=== PATIENT | male | born 1940 | race Caucasian/White ===

== ENCOUNTER 2017-10-03 16:32 | Emergency (ER) | payer MEDICARE ==
[~2017-10-03] VITALS: Ht 175.3 cm; Wt 55.0 kg
[~2017-10-03 16:32] MED LIST: ACID1GRA3 PO; ASPI-515 PO; ATOR40TA PO; CIPR500T3 PO; CYAN10005 PO; DOCU-131 PO; ENOX40SY4 SQ; FAMO20TA7 PO; FOLI-17 PO; IPRA3AMP INH; LEVO500T47 PO; LEVO750T26 PO; LEVO750T6 PO; LORA-446 PO; METO25TA35 PO; METO50TA82 PO; MULT-26 PO; MULT-750 PO; NICO-487 TD; OXYC5TAB3 PO; POLY17PO5 PO; PRED5TAB PO; TEMA15CA PO; THIA100T10 PO; THIA100T6 PO; TRAM50TA2 PO; VANC1VIA3 PO; beer PO
[2017-10-03] MEDS ORDERED: methylPREDNISolone SOD SUCC 125 MG/2 ML ONE (17:29)
[2017-10-03] MEDS ORDERED: ALBUTEROL SULFATE 2.5 MG/3 ML NPPB ONE (17:30)
[2017-10-03] MEDS ORDERED: SODIUM CHLORIDE FLUSH 10ML SYR IVF ONE (17:30)
[2017-10-03] MEDS ORDERED: methylPREDNISolone SOD SUCC 125 MG/2 ML IVP ONE (17:30)
[2017-10-03 17:38] LABS: ALBUMIN 3.9 g/dL (3.4-5.0); ANION GAP 18 mmol/L (5-15); CALCIUM 8.8 mg/dL (8.5-10.1); CHLORIDE 98 mmol/L (98-107); CREATININE 1.16 mg/dL (0.7-1.3)
[2017-10-03 18:15] LABS: BASOPHILS # (AUTO) 0.03 x10^3/uL (0-0.1); BASOPHILS % (AUTO) 1 % (0-1); EOSINOPHILS # (AUTO) 0.11 x10^3/uL (0-0.4); EOSINOPHILS % (AUTO) 2 % (1-7); LYMPHOCYTES # (AUTO) 1.57 x10^3/uL (1-3.4); LYMPHOCYTES % (AUTO) 33 % (22-44); MD NO; MEAN CORPUSCULAR HEMOGLOBIN 34.3 pg (27.5-34.5); MEAN CORPUSCULAR HGB CONC 33.8 g/dL (33.2-36.2); MEAN CORPUSCULAR VOLUME 101.5 fL (81-97); MEAN PLATELET VOLUME 7.2 fL (7.4-10.4); MONOCYTES % (AUTO) 13 % (2-9); NEUTROPHILS # (AUTO) 2.49 x10^3/uL (1.8-6.8); NEUTROPHILS % (AUTO) 52 % (42-75); PLATELET COUNT 109 x10^3/uL (130-400); RED BLOOD COUNT 3.51 x10^6/uL (4.38-5.82); RED CELL DISTRIBUTION WIDTH 14.7 % (9.4-14.8)
[2017-10-03] MEDS ORDERED: SODIUM CHLORIDE 0.9% 1,000ML IVBOLUS ONE (18:30)
[2017-10-03 18:49] LABS: ALBUMIN 3.9 g/dL (3.4-5.0); BILIRUBIN, DIRECT 0.2 mg/dL (0.1-0.2)
[2017-10-03 18:54] LABS: ALANINE AMINOTRANSFERASE 20 U/L (12-78); ALKALINE PHOSPHATASE 90 U/L (45-117); BILIRUBIN,INDIRECT 0.6 mg/dL (0.0-2.0); BILIRUBIN,TOTAL 0.8 mg/dL (0.2-1.0); CREATINE KINASE, TOTAL 67 U/L (39-308); TOTAL PROTEIN 8.1 g/dL (6.4-8.2); TROPONIN I < 0.015 ng/mL (0.000-0.045)
[2017-10-03] MEDS ORDERED: D5%-0.45% NACL 1,000 ML IV SCH (19:30)
[2017-10-03 21:54] VITALS: BP 122/66
== END 2017-10-03 22:33 | disposition home or self-care (01) ==
LOC: ED 18:46
DX: R53.81 Other malaise (principal); F10.20 Alcohol dependence, uncomplicated
CPT/HCPCS: 36415; 70450; 71010; 80048; 80076; 82040; 82550; 83735; 84484; 85025; 93005; 99285

== ENCOUNTER 2020-01-29 02:28 | Inpatient (IN) | payer MEDICARE, MEDICAID ==
[~2020-01-29] VITALS: Ht 175.3 cm; Wt 47.3 kg
[~2020-01-29 02:28] MED LIST changes: +CYAN-27 PO; -CYAN10005 PO; -IPRA3AMP INH; +IPRA3AMP30 INH; -THIA100T6 PO; +THIA100T67 PO
--- NOTE | 2020-01-29 02:34 | NUR ---
Patient BIB [facility] c/o bilat leg weakness and productive cough x1 month. Patient is coughing up white phlegm. Respirations even and unlabored. Patient is in NAD.
[2020-01-29 03:25] LABS: BASOPHILS # (AUTO) 0.05 x10^3/uL (0-0.1); BASOPHILS % (AUTO) 1 % (0-1); EOSINOPHILS # (AUTO) 0.02 x10^3/uL (0-0.4); EOSINOPHILS % (AUTO) 0 % (1-7); LYMPHOCYTES # (AUTO) 0.69 x10^3/uL (1-3.4); LYMPHOCYTES % (AUTO) 7 % (22-44); MD NO; MEAN CORPUSCULAR HEMOGLOBIN 32.5 pg (27.5-34.5); MEAN CORPUSCULAR HGB CONC 32.9 g/dL (33.2-36.2); MEAN CORPUSCULAR VOLUME 98.6 fL (81-97); MEAN PLATELET VOLUME 6.9 fL (7.4-10.4); MONOCYTES # (AUTO) 0.79 x10^3/uL (0.2-0.8); MONOCYTES % (AUTO) 8 % (2-9); NEUTROPHILS # (AUTO) 7.93 x10^3/uL (1.8-6.8); NEUTROPHILS % (AUTO) 84 % (42-75); PLATELET COUNT 200 x10^3/uL (130-400); RED BLOOD COUNT 2.85 x10^6/uL (4.38-5.82); RED CELL DISTRIBUTION WIDTH 15.6 % (9.4-14.8)
[2020-01-29 03:31] LABS: ALANINE AMINOTRANSFERASE 18 U/L (12-78); ALBUMIN 3.1 g/dL (3.4-5.0); ANION GAP 15 mmol/L (5-15); CALCIUM 9.1 mg/dL (8.5-10.1); CHLORIDE 99 mmol/L (98-107); CREATININE 1.66 mg/dL (0.7-1.3)
[2020-01-29 03:36] LABS: ALKALINE PHOSPHATASE 75 U/L (45-117); BILIRUBIN,TOTAL 0.4 mg/dL (0.2-1.0); TOTAL PROTEIN 7.6 g/dL (6.4-8.2); TROPONIN I < 0.015 ng/mL (0.000-0.045)
[2020-01-29] MEDS ORDERED: SODIUM CHLORIDE 0.9% 1,000 ML IV ONE (03:53)
[2020-01-29] MEDS ORDERED: CEFTRIAXONE PMX 1GM/50ML 50 ML IVPB ONE (04:00)
[2020-01-29] MEDS ORDERED: AZITHROMYCIN 500 MG in SODIUM CHLORIDE 0.9% 250 ML IVPB ONE (04:00)
[2020-01-29] MEDS ORDERED: SODIUM CHLORIDE FLUSH 10ML SYR IVF ONE (04:00)
[2020-01-29] MEDS ORDERED: CEFTRIAXONE PMX 1GM/50ML 50 ML ONE (04:02)
--- NOTE | 2020-01-29 04:43 | NUR ---
Liu in room.
--- NOTE | 2020-01-29 05:26 | NUR ---
Report given to BOB Terry. Patient to be transferred to room 377.
[2020-01-29 05:40] VITALS: BP 122/70
[2020-01-29] MEDS ORDERED: ONDANSETRON 2MG/ML, 2ML IVPush PRN (06:00)
[2020-01-29] MEDS ORDERED: hydrALAzine 20 MG/ML, 1ML IVPush PRN (06:00)
[2020-01-29] MEDS ORDERED: ACETAMINOPHEN 325 MG TABLET PO PRN (06:00)
[2020-01-29] MEDS: AZITHROMYCIN 500 MG in SODIUM CHLORIDE 0.9% 250 ML IV SCH (06:00)
[2020-01-29] MEDS: methylPREDNISolone SOD SUCC 40 MG/ML IVPush SCH ×4 (06:00→23:42)
[2020-01-29] MEDS ORDERED: LORazepam 2 MG/ML, 1ML IVPush PRN (06:00)
[2020-01-29] MEDS ORDERED: morphine SULFATE 10 MG/ML, 1ML IVPush PRN (06:00)
[2020-01-29] MEDS ORDERED: CEFTRIAXONE PMX 1GM/50ML 50 ML IV SCH (06:00)
[2020-01-29] MEDS: HEPARIN 5,000 UNITS/ML, 1ML SQ SCH ×3 (06:27→22:09)
[2020-01-29] MEDS ORDERED: PHARMACY MAY ADJ FOR RENAL FX MC PRN (06:30)
[2020-01-29] MEDS ORDERED: PIPERACILLIN/TAZO/PMX 2.25GM 50 ML IV SCH (06:30)
[2020-01-29 07:27] LABS: TROPONIN I < 0.015 ng/mL (0.000-0.045)
[2020-01-29 07:29] LABS: INTERNATIONAL NORMALIZED RATIO 0.94 (0.93-1.1)
[2020-01-29 08:00] VITALS: BP 128/71
[2020-01-29] MEDS: POTASSIUM CHLORIDE 20 MEQ, MAGNESIUM SULFATE 2 GM, THIAMINE 200 MG, MVI ADULT 10 ML, FO... IV SCH ×2 (10:24→20:00)
[2020-01-29 12:39] LABS: TROPONIN I < 0.015 ng/mL (0.000-0.045)
--- NOTE | 2020-01-29 12:59 | NUR ---
REC RETURN TO HOME Addendum: 01/29/20 at [address] Amended: Links added.
[2020-01-29 15:30] VITALS: BP 119/64
[2020-01-29 19:39] VITALS: BP 123/68
[2020-01-29] MEDS: PIPERACILLIN/TAZO/PMX 2.25GM 50 ML IV SCH (22:08)
[2020-01-29 23:00] LABS: AMPHETAMINE SCREEN, URINE Negative (Negative); BARBITURATE SCREEN, URINE Negative (Negative); BENZODIAZEPINE SCREEN, URINE Negative (Negative); CANNABINOID SCREEN, URINE Negative (Negative); COCAINE SCREEN, URINE Negative (Negative); METHADONE SCREEN, URINE Negative (Negative); OPIATE SCREEN, URINE Negative (Negative)
[2020-01-30 00:03] VITALS: BP 116/53
[2020-01-30 02:47] LABS: OCCULT BLOOD POSITIVE (NEGATIVE)
[2020-01-30] MEDS: AZITHROMYCIN 500 MG in SODIUM CHLORIDE 0.9% 250 ML IV SCH (05:42)
[2020-01-30 05:55] LABS: MEAN CORPUSCULAR HEMOGLOBIN 32.2 pg (27.5-34.5); MEAN CORPUSCULAR HGB CONC 32.4 g/dL (33.2-36.2); MEAN CORPUSCULAR VOLUME 99.4 fL (81-97); MEAN PLATELET VOLUME 7.4 fL (7.4-10.4); PLATELET COUNT 155 x10^3/uL (130-400); RED BLOOD COUNT 2.28 x10^6/uL (4.38-5.82); RED CELL DISTRIBUTION WIDTH 15.4 % (9.4-14.8)
[2020-01-30 05:59] LABS: CHLORIDE 101 mmol/L (98-107)
[2020-01-30] MEDS: methylPREDNISolone SOD SUCC 40 MG/ML IVPush SCH ×2 (06:01→21:22)
[2020-01-30] MEDS: HEPARIN 5,000 UNITS/ML, 1ML SQ SCH (06:01)
[2020-01-30 06:08] LABS: ANION GAP 10 mmol/L (5-15); CALCIUM 8.5 mg/dL (8.5-10.1); CHOL/HDL RATIO 1.4; CHOLESTEROL, TOTAL 116 mg/dL (140-239); CREATININE 1.46 mg/dL (0.7-1.3); HDL CHOL % 70 % (26-37); HDL CHOLESTEROL (DIRECT) 81 mg/dL (40-60); LDL CHOLESTEROL,CALCULATED 24 mg/dL (54-169); LDL/HDL RATIO 0.3 (0.5-3.0); TRIGLYCERIDES 55 mg/dL (50-200); VLDL CHOLESTEROL 11 mg/dL (0-25)
[2020-01-30 06:22] LABS: MD SCAN
[2020-01-30 06:23] LABS: BASOPHILS % (AUTO) 0 % (0-1); EOSINOPHILS % (AUTO) 0 % (1-7); LYMPHOCYTES # (AUTO) 0.28 x10^3/uL (1-3.4); LYMPHOCYTES % (AUTO) 3 % (22-44); MONOCYTES # (AUTO) 0.31 x10^3/uL (0.2-0.8); MONOCYTES % (AUTO) 3 % (2-9); NEUTROPHILS # (AUTO) 9.08 x10^3/uL (1.8-6.8); NEUTROPHILS % (AUTO) 94 % (42-75)
[2020-01-30 06:39] VITALS: BP 101/64
[2020-01-30] MEDS: PIPERACILLIN/TAZO/PMX 2.25GM 50 ML IV SCH ×3 (07:30→23:29)
[2020-01-30] MEDS: PANTOPRAZOLE 40MG TABLET PO SCH ×2 (09:00→21:22)
[2020-01-30] MEDS: NEUTRA PHOS K 250 MG TABLET PO SCH ×3 (09:00→21:22)
[2020-01-30 12:37] VITALS: BP 107/58
[2020-01-30 21:30] VITALS: BP 119/55
[2020-01-31 01:00] VITALS: BP 115/67
[2020-01-31] MEDS: AZITHROMYCIN 500 MG in SODIUM CHLORIDE 0.9% 250 ML IV SCH (05:36)
[2020-01-31 06:16] LABS: BASOPHILS # (AUTO) 0.01 x10^3/uL (0-0.1); BASOPHILS % (AUTO) 0 % (0-1); EOSINOPHILS % (AUTO) 0 % (1-7); LYMPHOCYTES % (AUTO) 3 % (22-44); MD NO; MEAN CORPUSCULAR HEMOGLOBIN 32.9 pg (27.5-34.5); MEAN CORPUSCULAR HGB CONC 32.9 g/dL (33.2-36.2); MEAN CORPUSCULAR VOLUME 99.9 fL (81-97); MEAN PLATELET VOLUME 7.9 fL (7.4-10.4); MONOCYTES % (AUTO) 3 % (2-9); NEUTROPHILS # (AUTO) 11.74 x10^3/uL (1.8-6.8); NEUTROPHILS % (AUTO) 94 % (42-75); PLATELET COUNT 154 x10^3/uL (130-400); RED BLOOD COUNT 2.34 x10^6/uL (4.38-5.82); RED CELL DISTRIBUTION WIDTH 15.5 % (9.4-14.8)
[2020-01-31 06:20] LABS: ANION GAP 8 mmol/L (5-15); CALCIUM 8.8 mg/dL (8.5-10.1); CHLORIDE 103 mmol/L (98-107)
[2020-01-31 06:26] LABS: % IRON SATURATION 17 % (20-55); CREATININE 1.31 mg/dL (0.7-1.3); IRON LEVEL 47 mcg/dL (65-175); TOTAL IRON BINDING CAPACITY 282 mcg/dL (250-450)
[2020-01-31] MEDS: PIPERACILLIN/TAZO/PMX 2.25GM 50 ML IV SCH ×2 (07:15→15:57)
[2020-01-31 07:30] VITALS: BP 110/60
[2020-01-31] MEDS: NEUTRA PHOS K 250 MG TABLET PO SCH ×3 (08:20→22:05)
[2020-01-31] MEDS: PANTOPRAZOLE 40MG TABLET PO SCH ×2 (08:20→22:05)
[2020-01-31] MEDS: methylPREDNISolone SOD SUCC 40 MG/ML IVPush SCH ×2 (08:21→22:05)
[2020-01-31 11:40] VITALS: BP 125/65
[2020-01-31 15:03] VITALS: BP 106/64
[2020-01-31 19:45] VITALS: BP 133/71
[2020-02-01] VITALS (9 sets, daily range): BP systolic 114–126; BP diastolic 65–73
[2020-02-01] MEDS: PIPERACILLIN/TAZO/PMX 2.25GM 50 ML IV SCH ×3 (01:08→16:55)
[2020-02-01 06:05] LABS: MEAN CORPUSCULAR HEMOGLOBIN 33.1 pg (27.5-34.5); MEAN CORPUSCULAR VOLUME 100.4 fL (81-97); MEAN PLATELET VOLUME 7.8 fL (7.4-10.4); PLATELET COUNT 144 x10^3/uL (130-400); RED CELL DISTRIBUTION WIDTH 15.6 % (9.4-14.8)
[2020-02-01 06:10] LABS: CHLORIDE 110 mmol/L (98-107)
[2020-02-01 06:15] LABS: ANION GAP 9 mmol/L (5-15); CALCIUM 8.4 mg/dL (8.5-10.1); CREATININE 1.42 mg/dL (0.7-1.3)
[2020-02-01 06:25] LABS: BASOPHILS # (AUTO) 0.01 x10^3/uL (0-0.1); BASOPHILS % (AUTO) 0 % (0-1); EOSINOPHILS % (AUTO) 0 % (1-7); LYMPHOCYTES # (AUTO) 0.38 x10^3/uL (1-3.4); LYMPHOCYTES % (AUTO) 5 % (22-44); MD SCAN; MONOCYTES # (AUTO) 0.22 x10^3/uL (0.2-0.8); MONOCYTES % (AUTO) 3 % (2-9); NEUTROPHILS # (AUTO) 7.03 x10^3/uL (1.8-6.8); NEUTROPHILS % (AUTO) 92 % (42-75)
[2020-02-01] MEDS ORDERED: ACETAMINOPHEN 325 MG TABLET PO ONE (07:00)
[2020-02-01] MEDS ORDERED: DIPHENHYDRAMINE 25 MG CAPSULE PO ONE (07:00)
[2020-02-01] MEDS: methylPREDNISolone SOD SUCC 40 MG/ML IVPush SCH (08:50)
[2020-02-01] MEDS: NEUTRA PHOS K 250 MG TABLET PO SCH ×3 (08:50→20:04)
[2020-02-01] MEDS: PANTOPRAZOLE 40MG TABLET PO SCH ×2 (08:51→20:04)
[2020-02-02 00:36] VITALS: BP 128/88
[2020-02-02] MEDS: PIPERACILLIN/TAZO/PMX 2.25GM 50 ML IV SCH ×4 (00:58→21:23)
[2020-02-02 07:44] LABS: MEAN CORPUSCULAR HEMOGLOBIN 32.5 pg (27.5-34.5); MEAN CORPUSCULAR HGB CONC 32.6 g/dL (33.2-36.2); MEAN CORPUSCULAR VOLUME 99.4 fL (81-97); MEAN PLATELET VOLUME 7.7 fL (7.4-10.4); PLATELET COUNT 136 x10^3/uL (130-400); RED BLOOD COUNT 2.66 x10^6/uL (4.38-5.82); RED CELL DISTRIBUTION WIDTH 15.6 % (9.4-14.8)
[2020-02-02 07:47] VITALS: BP 122/71
[2020-02-02 07:54] LABS: ALANINE AMINOTRANSFERASE 15 U/L (12-78); ALBUMIN 2.3 g/dL (3.4-5.0); ANION GAP 8 mmol/L (5-15); CALCIUM 7.9 mg/dL (8.5-10.1); CHLORIDE 103 mmol/L (98-107); CREATININE 1.31 mg/dL (0.7-1.3)
[2020-02-02 07:56] LABS: ALKALINE PHOSPHATASE 44 U/L (45-117); BILIRUBIN,TOTAL 0.6 mg/dL (0.2-1.0); TOTAL PROTEIN 5.4 g/dL (6.4-8.2)
[2020-02-02 07:57] LABS: BASOPHILS # (AUTO) 0.11 x10^3/uL (0-0.1); BASOPHILS % (AUTO) 1 % (0-1); EOSINOPHILS % (AUTO) 0 % (1-7); LYMPHOCYTES # (AUTO) 0.63 x10^3/uL (1-3.4); LYMPHOCYTES % (AUTO) 7 % (22-44); MD SCAN; MONOCYTES % (AUTO) 8 % (2-9); NEUTROPHILS # (AUTO) 7.82 x10^3/uL (1.8-6.8); NEUTROPHILS % (AUTO) 85 % (42-75)
[2020-02-02] MEDS: NEUTRA PHOS K 250 MG TABLET PO SCH ×3 (08:46→21:23)
[2020-02-02] MEDS: PANTOPRAZOLE 40MG TABLET PO SCH ×2 (08:46→21:23)
[2020-02-02 14:44] VITALS: BP 122/71
[2020-02-02 21:17] VITALS: BP 129/76
[2020-02-03] MEDS ORDERED: MELATONIN 5 MG TABLET PO PRN (00:30)
[2020-02-03 01:25] VITALS: BP 127/75
[2020-02-03] MEDS: PIPERACILLIN/TAZO/PMX 2.25GM 50 ML IV SCH (03:22)
[2020-02-03 04:55] LABS: BASOPHILS % (AUTO) 0 % (0-1); EOSINOPHILS # (AUTO) 0.04 x10^3/uL (0-0.4); EOSINOPHILS % (AUTO) 0 % (1-7); LYMPHOCYTES # (AUTO) 0.35 x10^3/uL (1-3.4); LYMPHOCYTES % (AUTO) 4 % (22-44); MD NO; MEAN CORPUSCULAR HEMOGLOBIN 33.1 pg (27.5-34.5); MEAN CORPUSCULAR HGB CONC 33.1 g/dL (33.2-36.2); MEAN CORPUSCULAR VOLUME 99.8 fL (81-97); MEAN PLATELET VOLUME 8.5 fL (7.4-10.4); MONOCYTES # (AUTO) 0.53 x10^3/uL (0.2-0.8); MONOCYTES % (AUTO) 6 % (2-9); NEUTROPHILS # (AUTO) 7.62 x10^3/uL (1.8-6.8); NEUTROPHILS % (AUTO) 89 % (42-75); PLATELET COUNT 133 x10^3/uL (130-400); RED BLOOD COUNT 2.69 x10^6/uL (4.38-5.82); RED CELL DISTRIBUTION WIDTH 15.3 % (9.4-14.8)
[2020-02-03 05:04] LABS: ALBUMIN 2.2 g/dL (3.4-5.0); ANION GAP 5 mmol/L (5-15); CALCIUM 7.9 mg/dL (8.5-10.1); CHLORIDE 105 mmol/L (98-107)
[2020-02-03 05:07] LABS: ALANINE AMINOTRANSFERASE 15 U/L (12-78); ALKALINE PHOSPHATASE 39 U/L (45-117); BILIRUBIN,TOTAL 0.3 mg/dL (0.2-1.0); CREATININE 1.22 mg/dL (0.7-1.3); TOTAL PROTEIN 5.3 g/dL (6.4-8.2)
[2020-02-03] MEDS ORDERED: SODIUM PHOSPHATE 10 MMOL in SODIUM CHLORIDE 0.9% 500 ML IV ONE (07:00)
[2020-02-03 08:50] VITALS: BP 113/65
[2020-02-03] MEDS: NEUTRA PHOS K 250 MG TABLET PO SCH (08:53)
[2020-02-03] MEDS: PANTOPRAZOLE 40MG TABLET PO SCH (08:54)
[2020-02-03] MEDS ORDERED: FOLIC ACID 1 MG TABLET PO SCH (09:00)
[2020-02-03] MEDS ORDERED: MULTIVITS,STRESS FORMULA 1 TABLET PO SCH (09:00)
[2020-02-03] MEDS ORDERED: NYSTATIN OINT 15GM TP SCH (10:00)
[2020-02-03] MEDS ORDERED: PANT40TA5 PO (11:14)
[2020-02-03] MEDS ORDERED: NYST15OI TP (11:14)
[2020-02-03] MEDS ORDERED: PRED20TA PO (11:14)
[2020-02-03 14:26] VITALS: BP 126/73
== END 2020-02-03 15:39 | DRG 177 ==
LOC: ED 02:38 → EDIP 04:01 → 3N 05:34 → 4NE 13:52 → 4NW 01-30 16:00 → 3N 01-31 10:55
PROVIDERS: ADMIT Family Medicine; ATTEND Internal Medicine
PROC: 30233N1 Transfusion of Nonautologous Red Blood Cells into Peripheral Vein, Percutaneous Approach (ICD-10-PCS; principal; 2020-02-01)
DX: J15.6 Pneumonia due to other Gram-negative bacteria (principal); E43 Unspecified severe protein-calorie malnutrition; N17.0 Acute kidney failure with tubular necrosis; J44.0 Chronic obstructive pulmonary disease with (acute) lower respiratory infection; K92.2 Gastrointestinal hemorrhage, unspecified; Z68.1 Body mass index [BMI] 19.9 or less, adult; J98.11 Atelectasis; F10.288 Alcohol dependence with other alcohol-induced disorder; J44.1 Chronic obstructive pulmonary disease with (acute) exacerbation; R73.9 Hyperglycemia, unspecified; Z20.828 Contact with and (suspected) exposure to other viral communicable diseases; B35.4 Tinea corporis; B35.6 Tinea cruris; D53.9 Nutritional anemia, unspecified; R29.6 Repeated falls; E86.0 Dehydration; F17.210 Nicotine dependence, cigarettes, uncomplicated; G89.29 Other chronic pain; K21.9 Gastro-esophageal reflux disease without esophagitis; Z91.19 Patient's noncompliance with other medical treatment and regimen; Z91.81 History of falling; J18.9 Pneumonia, unspecified organism
CPT/HCPCS: 36415; 71045; 71250; 74176; 80048; 80053; 80061; 80307; 82272; 82607; 82728; 83540; 83550; 83605; 83735; 83880; 84100; 84443; 84484; 85025; 85610; 86850; 86900; 86923; 87040; 87070; 87205; 93005; 93306; 96374; 96375; 99285; G0378; J0456; J0696; J1644; J2543; J3411; J3475; J3480; J7042; J2920; J7030; J7040; J7050; J7512; P9016; Q0163; U0001